=== PATIENT | female | born 1970 | race American Indian/Alaskan Native ===

== ENCOUNTER 2020-08-14 10:04 | Outpatient (CLI) | payer MEDICAID ==
--- NOTE | 2020-08-14 11:08 | XRay Report ---
Thoracic spine 2 views INDICATION: Back pain. IMPRESSION: Multilevel thoracolumbar degenerative changes. No significant vertebral body height loss. Signer Name: Murali Manjarrez MD Signed: 08/14/2020 11:03 AM Workstation Name: [id number]
--- NOTE | 2020-08-14 11:08 | XRay Report ---
Lumbar spine 4 views INDICATION: Low back pain IMPRESSION: Multilevel discogenic and facet arthropathy primarily at L5-S1, there is mild bilateral n eural foraminal narrowing. No pars defect. Signer Name: Murali Manjarrez MD Signed: 08/14/2020 11:04 AM Workstation Name: [id number]
== END 2020-08-14 10:05 | disposition home or self-care (01) ==
LOC: XRAY 10:04
PROVIDERS: ATTEND Orthopaedic Surgery
DX: M47.817 Spondylosis without myelopathy or radiculopathy, lumbosacral region (principal); M47.814 Spondylosis without myelopathy or radiculopathy, thoracic region; M48.07 Spinal stenosis, lumbosacral region
CPT/HCPCS: 72070; 72110